=== PATIENT | male | born 1965 | race Asian ===

== ENCOUNTER 2017-03-31 13:17 | Emergency (ER) | payer OTHER ==
[~2017-03-31] VITALS: Ht 172.7 cm; Wt 86.2 kg
[2017-03-31 13:25] VITALS: TEMP 98.8
[2017-03-31 13:57] LABS: PLATELET COUNT 310 K/uL (142-355)
[2017-03-31 14:22] LABS: POTASSIUM 4.5 mmol/L (3.6-5.2)
[2017-03-31 15:52] VITALS: BP 167/102
== END 2017-03-31 16:00 | disposition home or self-care (01) ==
LOC: ED 13:17
DX: I63.8 Other cerebral infarction (principal)
CPT/HCPCS: 80053; 80307; 81000; 85027; 96365; 99284; J3490

== ENCOUNTER 2017-03-31 15:49 | Outpatient (CLI) | payer OTHER | END 2017-03-31 17:21 | disposition short-term general hospital (02) | LOC: AMB 15:49 | DX: I63.8 Other cerebral infarction (principal) | CPT/HCPCS: A0425; A0427 ==